=== PATIENT | female | born 1950 | race Caucasian/White ===

== ENCOUNTER 2017-09-04 22:28 | Observation (INO) ==
[2017-09-04] MEDS ORDERED: Nitroglycerin 0.4 MG TAB.SUBL SL PRN (23:03)
[2017-09-04] MEDS ORDERED: Aspirin 81 MG TAB.CHEW PO STA (23:03)
--- NOTE | 2017-09-04 23:06 | Emergency Department Note ---
Disposition Clinical Impression: Atypical chest pain Disposition: Admitted As Inpatient Condition: Good Referrals: Tarik Daily MD [Primary Care Provider] - Forms: ED Satisfaction Letter Time of Disposition: 01:40 Chest Pain HPI - General Chief Complaint: ED Chest Pain Stated Complaint: cp Time Seen by Provider: 09/04/17 22:46 Source: patient, family Mode of arrival: ambulatory Limitations: no limitations Vital Signs Reviewed: Yes Nursing Notes Reviewed: Yes - History of Present Illness HPI Narrative: 67-year-old female history of CAD x1 stent and current smoker presents with chest pain. States around 2029 she began experiencing left shoulder pain that radiated to the chest. She describes as a pressure over the chest with associated shortness of breath. No radiation to the back or to the jaw. Reportedly the pain is 10 out of 10 and currently 8 of 10. She did take 2 nitro prior to arrival. She did not taken aspirin today. She is on medications for high blood pressure as well as a Meera given her history of CAD. Reports some nausea no vomiting. Denies any diaphoresis. No recent illness fever or cough. Of note patient is on Eliquis for atrial fibrillation. She is post again ablation however she has complications and reportedly had a perforation to her heart. She reports that echocardiogram was performed and did not show fluid around the sack. This was back in August 09. Patient denies history of blood clots, long distance travel.. Pt complaint: chest pain Severity scale (1-10): 10 - Related Data Home Medications Medication Instructions Recorded Confirmed Simvastatin [Zocor] 40 mg PO QPM 03/22/16 04/26/16 Metoprolol XL (24 HR) Succ [Toprol 50 mg PO DAILY 04/12/16 04/26/16 Xl] Previous Rx's Medication Instructions Recorded Aspirin 81 mg PO DAILY #30 tab.chew 03/28/16 Sotalol [Betapace] 120 mg PO Q12H #20 tablet 04/28/16 Warfarin [Coumadin] 5 mg PO Q48H #4 tablet 04/28/16 Warfarin [Coumadin] 6 mg PO Q48H #4 tablet 04/28/16 Allergies Allergy/AdvReac Type Severity Reaction Status Date / Time Penicillins Allergy Swelling Verified 04/26/16 17:46 of Lip/Tongue/Throat All systems ED: reviewed and negative except as stated. Review of Systems: As Per HPI Constitutional: Denies: fever, chills, weakness ENT ED: Denies: congestion Cardiovascular: Reports: chest pain Respiratory: Reports: dyspnea. Denies: cough Gastrointestinal: Denies: abdominal pain, nausea, vomiting Genitourinary: Denies: urgency, dysuria Musculoskeletal: Denies: back pain, neck pain Integumentary: Denies: rash, abrasion Neurological: Denies: headache Psychiatric: Reports: anxiety Endocrine: Denies: fatigue Chest Pain PMH - Past Medical History Medical history: Reports: atrial fibrillation, coronary artery disease, myocardial infarction, other Surgical history: Reports: appendectomy, breast surgery, cholecystectomy, pacemaker/AICD, other Psychiatric history: Reports: no psych history CLAIMS MANAGER history: Reports: no CLAIMS MANAGER history - Social History Smoking Status: Current every day smoker Alcohol use: Reports: none Drug use: Reports: none Physical Exam - General Limitations: no limitations General appearance: alert, in no apparent distress - Head Head exam: atraumatic, normocephalic, normal inspection - Eye Eye exam: Present: normal appearance, PERRL, EOMI - ENT ENT exam: normal exam, normal oropharynx, mucous membranes moist - Neck Neck exam: Present: normal inspection, full ROM, trachea midline - Chest Chest inspection: Present: normal inspection, symmetric chest wall rise, other ( pacemaker left chest wall) - Respiratory Respiratory exam: Present: normal lung sounds bilaterally. Absent: respiratory distress, wheezes - Cardiovascular Cardiovascular exam: Present: regular rate, normal rhythm, normal heart sounds - Abdominal Exam Abdominal exam: Present: soft, Non-Tender, normal bowel sounds. Absent: tenderness, distention, guarding, rebound, rigidity - Extremities Exam Extremities exam: Present: normal inspection, full ROM, normal capillary refill. Absent: tenderness, pedal edema, calf tenderness - Neurological Exam Neurological exam: Present: alert, oriented X3 - Psychiatric Psychiatric exam: Present: normal affect, normal mood - Skin Skin exam: Present: warm, dry, intact, normal color. Absent: rash, cyanosis, diaphoresis Course Course Narrative: Patient presents with left arm pain radiating to the chest. States this is similar presentation to her prior myocardial infarction requiring one stent. She took 2 nitro prior to arrival with minimal relief. She denies any recent trauma. Of note she had a perforation during the ablation procedure for her atrial fibrillation. She had echocardiogram that did not show pericardial effusion. On exam she does not have any JVD. Heart sounds regular rate and rhythm. Lungs are clear auscultation bilaterally. Bedside ultrasound performed that showed trace pericardial effusion. No evidence of chamber collapse consistent with tamponade. Images and clips saved but unable to transfer to PACS at this time. Chest pain workup initiated. Patient did not take aspirin today will administer. Patient currently takes Eliquis for Afib. - Reevaluation(s) Reevaluation #1: Patient reports additional nitro may pain worse. Attempted G.I. cocktail also made it worse. Patient was given fentanyl which has substantially decrease her discomfort. EKG did not show any acute ischemic changes. Troponin < 0.03. Labs are otherwise unremarkable. CXR did not show pulmonary process or enlarged heart or outline around heart silhouette to suggest large pericardial effusion. Patient remains hemodynamically stable. Due to the patient's atypical presentation will admit for chest pain to rule out acute coronary syndrome. Her heart score is 5. Patients in agreement with this plan. Time: 02:15 - Consultations Consultation #1: Spoke with on-call hospitalist compa Murillo to admit for chest pain R/O ACS. No further orders at this time Time: 02:40 Vital Signs Temperature 98.2 F 09/04/17 22:31 Pulse Rate 69 09/04/17 22:31 Respiratory Rate 22 09/04/17 22:31 Blood Pressure 193/101 09/04/17 22:31 O2 Sat by Pulse Oximetry 94 09/04/17 22:31 Temperature 98.2 F 09/04/17 22:31 Pulse Rate 69 09/05/17 02:34 Respiratory Rate 17 09/05/17 02:34 Blood Pressure 119/79 09/05/17 02:34 O2 Sat by Pulse Oximetry 95 09/05/17 02:34 Oxygen Delivery Oxygen Delivery Room Air Procedures - Ultrasound-Other Narrative: Bedside ultrasound echocardiogram for chest pain and history of pericardial effusion. Patient was laid supine with the subxiphoid position there was a trace amount of pericardial effusion with good contractility. 8 parasternal long axis performed unable to visualize any pericardial effusion. There is good contractility no collapse of the ventricle. Images obtained by myself and interpreted by myself. Impression is questionable trace pericardial effusion without evidence of tamponade. Chest Pain - MDM Narrative Medical decision making narrative: Patient was discussed with my attending physician who agrees with ED management and final disposition. They independently evaluated the patient. Please refer to their attestation to this encounter for additional information. This note was generated by [employer] voice recognition software and as a result grammatical or spelling errors may occur using this program. - Medical Records Medical records reviewed: Yes I reviewed the patient's medical records. - Lab Data Lab results reviewed: Yes I reviewed the patient's lab results. Result diagrams: 09/04/17 22:57 09/04/17 22:57 Lab Results 09/04/17 09/04/17 09/04/17 Range/Units 22:57 22:57 22:57 WBC 9.2 (4.3-11.1) K/mcL RBC 4.58 (3.82-4.97) M/mcL Hgb 13.2 (11.5-15.4) g/dL Hct 41.7 (35.3-44.9) % MCV 91.0 (83.0-100.0) fL MCH 28.8 (28.0-33.3) pg MCHC 31.7 (31.6-35.5) g/dL RDW 12.8 (11.5-14.5) % Plt Count 210 (140-400) K/mcL MPV 11.3 (9.4-12.4) fL Immature Gran % 0.3 (0-4) % Seg Neutrophils % 70.7 % Lymphocytes % 17.1 % Monocytes % 7.7 % Eosinophils % 3.3 % Basophils % 0.9 % Neutrophils # 6.5 (1.6-8.9) K/mcL Lymphocytes # 1.6 (0.6-4.6) K/mcL Monocytes # 0.7 (0.0-1.3) K/mcL Eosinophils # 0.3 (0.0-0.6) K/mcL Basophils # 0.1 (0.0-0.2) K/mcL PT 12.6 H (9.4-12.1) Seconds INR 1.2 APTT 36.2 H (26.0-36.0) Seconds Sodium 139 (136-145) mEq/L Potassium 4.4 (3.5-5.1) mEq/L Chloride 106 (98-107) mEq/L Carbon Dioxide 28 (23-29) mEq/L BUN 14 (8-23) mg/dL Creatinine 0.80 (0.60-1.20) mg/dL Est GFR ( Amer) > 60 (> 60) Est GFR (Non-Af Amer) > 60 (> 60) BUN/Creatinine Ratio 18 (6-26) Glucose 122 H (70-105) mg/dL Calculated Osmolality 290 (280-300) Calcium 9.8 (8.6-10.3) mg/dL Troponin I < 0.03 (< 0.04) ng/mL - Radiology Data Radiology results reviewed: Yes I reviewed the patient's radiology results. Chest X-Ray 09/04/17 22:34 IMPRESSION: No acute cardiopulmonary abnormality. D/ / Silas Jolley / Silas Jolley Interpreting Provider: Silas Jolley - EKG Data EKG attestation: Yes I reviewed and interpreted this EKG. EKG results narrative: EKG performed 2236 electrical atrial paced rhythm 70 beats per minute, no ST elevation or depression, no T wave inversion, intervals within normal limits. Compared to prior EKG performed 04/28/2016 shows similar consistent findings of paced rhythm. Heart Score - Score History: Moderately Suspicious EKG: Non Specific repolarisation Disturbance Age: Greater than 65 Risk Factors: 1-2 risk factors Troponin: Less than normal limit HEART Score Total: 5
[2017-09-04 23:15] LABS: Basophils # 0.1 K/mcL (0.0-0.2); Basophils % 0.9 %; Eosinophils # 0.3 K/mcL (0.0-0.6); Eosinophils % 3.3 %; Hematocrit 41.7 % (35.3-44.9); Hemoglobin 13.2 g/dL (11.5-15.4); Immature Granulocytes % 0.3 % (0-4); Lymphocytes # 1.6 K/mcL (0.6-4.6); Lymphocytes % 17.1 %; Mean Corpuscular HGB Conc 31.7 g/dL (31.6-35.5); Mean Corpuscular Hemoglobin 28.8 pg (28.0-33.3); Mean Platelet Volume 11.3 fL (9.4-12.4); Monocytes # 0.7 K/mcL (0.0-1.3); Monocytes % 7.7 %; Neutrophils # 6.5 K/mcL (1.6-8.9); Platelet Count 210 K/mcL (140-400); Red Blood Count 4.58 M/mcL (3.82-4.97); Red Cell Distribution Width 12.8 % (11.5-14.5); Segmented Neutrophils % 70.7 %
[2017-09-04 23:21] LABS: INR 1.2; Prothrombin Time 12.6 Seconds (9.4-12.1)
[2017-09-04 23:23] LABS: Activated Partial Thrombo Time 36.2 Seconds (26.0-36.0)
[2017-09-04 23:37] LABS: BUN/Creatinine Ratio 18 (6-26); Blood Urea Nitrogen 14 mg/dL (8-23); Calcium 9.8 mg/dL (8.6-10.3); Carbon Dioxide 28 mEq/L (23-29); Chloride 106 mEq/L (98-107); Glucose 122 mg/dL (70-105); Osmolality,Calculated 290 (280-300); Potassium 4.4 mEq/L (3.5-5.1); Sodium 139 mEq/L (136-145); Troponin I < 0.03 ng/mL (< 0.04); eGFR For African Americans > 60 (> 60); eGFR For Non-African Americans > 60 (> 60)
[2017-09-05] MEDS ORDERED: GI Cocktail 40 ML EACH PO ONE (01:03)
[2017-09-05] MEDS ORDERED: *HR* FentaNYL (PF) 100 MCG/2 ML VIAL IVP ONE (01:41)
--- NOTE | 2017-09-05 03:03 | Emergency Department Note ---
Disposition Clinical Impression: Atypical chest pain Disposition: Admitted As Inpatient Condition: Good General Adult HPI - General Chief complaint: ED Chest Pain Stated complaint: cp Time Seen by Provider: 09/04/17 22:46 Source: patient, family Mode of arrival: ambulatory Limitations: no limitations Nursing Notes Reviewed: Yes Vital Signs Reviewed: Yes - History of Present Illness Pain Scale: 10 - Related Data Home Medications Medication Instructions Recorded Confirmed Metoprolol XL (24 HR) Succ [Toprol 50 mg PO DAILY 04/12/16 04/26/16 Xl] Previous Rx's Medication Instructions Recorded Aspirin 81 mg PO DAILY #30 tab.chew 03/28/16 Sotalol [Betapace] 120 mg PO Q12H #20 tablet 04/28/16 Allergies Allergy/AdvReac Type Severity Reaction Status Date / Time Penicillins Allergy Swelling Verified 04/26/16 17:46 of Lip/Tongue/Throat Constitutional: Denies: fever, chills, weakness ENT ED: Denies: congestion Cardiovascular: Reports: chest pain Respiratory: Reports: dyspnea. Denies: cough Gastrointestinal: Denies: abdominal pain, nausea, vomiting Genitourinary: Denies: urgency, dysuria Musculoskeletal: Denies: back pain, neck pain Integumentary: Denies: rash, abrasion Neurological: Denies: headache Psychiatric: Reports: anxiety Endocrine: Denies: fatigue Past Medical History - Past Medical History Medical history: Reports: atrial fibrillation, coronary artery disease, myocardial infarction, other Surgical history: Reports: appendectomy, breast surgery, cholecystectomy, pacemaker/AICD, other Psychiatric history: Reports: no psych history CHEMISTRY TECHNOLOGIST history: Reports: no CHEMISTRY TECHNOLOGIST history - Social History Smoking Status: Current every day smoker Smokeless Tobacco Status: No Alcohol use: Reports: none Drug use: Reports: none Physical Exam - General Limitations: no limitations General appearance: alert, in no apparent distress Course Vital Signs Temperature 98.2 F 09/04/17 22:31 Pulse Rate 69 09/04/17 22:31 Respiratory Rate 22 09/04/17 22:31 Blood Pressure 193/101 09/04/17 22:31 O2 Sat by Pulse Oximetry 94 09/04/17 22:31 Temperature 98.2 F 09/04/17 22:31 Pulse Rate 69 09/05/17 02:34 Respiratory Rate 17 09/05/17 02:34 Blood Pressure 119/79 09/05/17 02:34 O2 Sat by Pulse Oximetry 95 09/05/17 02:34 Oxygen Delivery Oxygen Delivery Room Air Medical Decision Making - Lab Data Result diagrams: 09/04/17 22:57 09/04/17 22:57 Lab Results 09/04/17 09/04/17 09/04/17 Range/Units 22:57 22:57 22:57 WBC 9.2 (4.3-11.1) K/mcL RBC 4.58 (3.82-4.97) M/mcL Hgb 13.2 (11.5-15.4) g/dL Hct 41.7 (35.3-44.9) % MCV 91.0 (83.0-100.0) fL MCH 28.8 (28.0-33.3) pg MCHC 31.7 (31.6-35.5) g/dL RDW 12.8 (11.5-14.5) % Plt Count 210 (140-400) K/mcL MPV 11.3 (9.4-12.4) fL Immature Gran % 0.3 (0-4) % Seg Neutrophils % 70.7 % Lymphocytes % 17.1 % Monocytes % 7.7 % Eosinophils % 3.3 % Basophils % 0.9 % Neutrophils # 6.5 (1.6-8.9) K/mcL Lymphocytes # 1.6 (0.6-4.6) K/mcL Monocytes # 0.7 (0.0-1.3) K/mcL Eosinophils # 0.3 (0.0-0.6) K/mcL Basophils # 0.1 (0.0-0.2) K/mcL PT 12.6 H (9.4-12.1) Seconds INR 1.2 APTT 36.2 H (26.0-36.0) Seconds Sodium 139 (136-145) mEq/L Potassium 4.4 (3.5-5.1) mEq/L Chloride 106 (98-107) mEq/L Carbon Dioxide 28 (23-29) mEq/L BUN 14 (8-23) mg/dL Creatinine 0.80 (0.60-1.20) mg/dL Est GFR ( Amer) > 60 (> 60) Est GFR (Non-Af Amer) > 60 (> 60) BUN/Creatinine Ratio 18 (6-26) Glucose 122 H (70-105) mg/dL Calculated Osmolality 290 (280-300) Calcium 9.8 (8.6-10.3) mg/dL Troponin I < 0.03 (< 0.04) ng/mL Attestation Statement - Attestation Attestation: I, Hemal Nguyen MD, personally evaluated this patient and discussed their management with the resident physician. I reviewed the resident's note and agree with the documented findings, medical decision making, and plan of care. 67-year-old female with history of coronary artery disease and coronary artery stents presents to the emergency department with a complaint of chest pain which started about 8:30 PM this evening. The pain started in the left shoulder and then radiated down to the mid lower substernal region. Pain is been constant since onset. Patient rated the pain a 15 out of 10 at the worst. She took 2 nitroglycerin at home which she states helped very little however when she got here she stated the pain was about an 8 out of 10. She received an additional nitroglycerin here and states it made the pain worse back up to a 10 out of 10. Other than starting in the shoulder and then radiating down to the chest there was no other radiation of the pain. Some shortness of breath and mild diaphoresis. Some mild nausea. Patient has a history of atrial fibrillation and has a pacemaker. She takes Eliquis. The chest pain is worse with sitting straight up or with lying down and improved with lying at about a 45 degree angle on the stretcher. On examination patient is a well-developed well-nourished well-appearing elderly female in no acute distress. She is alert and oriented 3. There is no cyanosis or diaphoresis. Chest is nontender to palpation. Breath sounds are equal bilaterally. No rales or wheezes noted. Heart regular rate and rhythm. Abdomen soft and nontender with normal bowel sounds. Labs reviewed. Troponin normal. EKG shows an electronic atrial pacemaker with a ventricular rate is 70 beats per minute. Minimal ST depression in V3 and V4. No ST elevations. No T-wave changes. Chest x-ray negative. Patient received a GI cocktail here with no improvement and stated it seemed to make the pain worse. She then received fentanyl with marked improvement in her pain. The hospitalist, Dr. Tamayo, was consulted and accepted admission of the patient.
[2017-09-05] MEDS ORDERED: Naloxone 0.4 MG/ML INJ IVP PRN (04:44)
[2017-09-05] MEDS ORDERED: *HR* HYDROcodone/Acet 5/325 mg TABLET PO PRN (04:44)
[2017-09-05] MEDS ORDERED: Acetaminophen 325 MG TABLET PO PRN (04:44)
[2017-09-05] MEDS ORDERED: Ipratropium/Albuterol Neb 3 ML IH PRN (04:54)
--- NOTE | 2017-09-05 05:19 | Internal Med History&Physical ---
Date of Encounter: 09/05/17 Time of Encounter: 04:20 Internal Medicine - H&P: HPI Chief complaint: chest pain, cough, SOB Admitted From: Emergency Dept Plans for Post Hospital Care: Home History of present illness: Ms. Mueller is a 67 year old female who presents with complaints of chest pain, cough, and shortness of breath, all of which started the last 24-48 hours. She came to ER for evaluation and had negative workup including EKG and troponins. Nonetheless, given her coronary artery disease history and recent EPS study, she was admitted to the hospitalist service. Patient had an EP study at [facility] last month and she suffered a perforation of her myocardium with a small pericardial effusion per verbal report from patient. She has had no untoward effects from that procedure thus far, but given her chronic anticoagulation and new presentation of chest pain and shortness of breath, I worry about pericardial effusion. I reviewed her x-ray and did not appreciate any enlargement of the cardiac silhouette. Nonetheless, I am ordering a STAT echocardiogram. Regarding her cough and shortness of breath, symptoms are all new and started within the last 2 days. She has had no fevers, chills, or night sweats. She denies any headaches, myalgias, vomiting, or diarrhea. She denies any FLU exposure. She is a nonsmoker and never has been. She has never had a PE. She is on Eliquis for her atrial fibrillation. She has not missed any doses of her anticoagulation. Past Med Surg Social Fam HX - Past Medical History Attestation: Yes The following information was validated with the patient. Source: patient, old records reviewed Medical history: atrial fibrillation, coronary artery disease, myocardial infarction Psychiatric history: no psych history - Past Surgical History Surgical History: appendectomy, breast surgery, cholecystectomy, pacemaker/AICD - Social History Smoking Status: Never smoker Smokeless Tobacco Status: No Alcohol use: none Drug use: none Current living situation: Home - Independent Activity Level: Independent ambulation Recent Out of Country Travel Within the Last 8 Weeks: No Exposure or Possible Exposure to Illness During Travel: No - Family History Mother Living Status: Hx Family Cardiac Disorders: Yes (unknown) Hx Family Respiratory Disorders: No Hx Family Cancer: No Hx Family GI Disorders: No Hx Family Genitourinary Disorders: No Hx Family Endocrine Disorder: Yes (diabetes) Hx Family Musculoskeletal Disorders: No Hx Family Neuromuscular Disorders: No Hx Family Neurologic Disorders: No Hx Family HEENT Disorders: No Hx Family Autoimmune Disorders: No Hx Family Reproductive Disorders: No Hx Family Psychosocial Disorders: No Hx Family Medical Disorders: No Brother Hx Family Cardiac Disorders: Yes (stents, [place]) Internal Medicine - H&P: Meds Aspirin 81 mg PO DAILY #30 tab.chew 03/28/16 [Rx] Metoprolol XL (24 HR) Succ [Toprol Xl] 50 mg PO DAILY 04/12/16 [History] Apixaban [Eliquis] 5 mg PO BID 09/05/17 [History] Atorvastatin [Lipitor] 40 mg PO HS 09/05/17 [History] Sotalol [Betapace] 160 mg PO Q12H 09/05/17 [History] 3 Allergy/AdvReac Type Severity Reaction Status Date / Time Penicillins Allergy Swelling Verified 04/26/16 17:46 of Lip/Tongue/Throat - Constitutional Constitutional: anorexia, malaise, no chills, no fever(s), no night sweats - EENT Eyes: no blurry vision, no change in vision Ears: no ear pain, no tinnitus Nose, mouth and throat: nasal congestion, sinus pressure, no nasal discharge, no post-nasal drip, no sinus pain, no sore throat - Cardiovascular Cardiovascular ROS IM: chest pain, dyspnea, dyspnea on exertion, no edema, no lightheadedness, no orthopnea, no palpitations, no paroxysmal nocturnal dyspnea , no syncope - Respiratory Respiratory: cough, dyspnea, dyspnea on exertion, pain on inspiration, chest congestion, change in phlegm color, pain with cough, no hemoptysis, no wheezing - Gastrointestinal Gastrointestinal: no abdominal pain, no diarrhea, no hematemesis, no hematochezia, no melena, no nausea, no vomiting - Genitourinary Genitourinary: no dysuria, no flank pain, no hematuria - Musculoskeletal Musculoskeletal ROS IM: no arthralgias, no back pain, no muscle cramps, no myalgias - Integumentary Integumentary IM: no rash, no jaundice - Neurological Neurological ROS: no dizziness, no focal weakness, no frequent falls, no headache(s) - Psychiatric Psychiatric: no anxiety, no depression - Endocrine Endocrine IM: no polydipsia, no polyuria - Hematologic/Lymphatic Hematologic/Lymphatic: easy bruising, no lymphadenopathy - Allergic/Immunologic Allergic/Immunologic: no wheezing, no GI upset with certain foods - Constitutional Vitals: Temp Pulse Resp BP Pulse Ox 97.8 F 68 16 125/77 96 09/05/17 03:37 09/05/17 03:37 09/05/17 03:37 09/05/17 03:37 09/05/17 03:37 General appearance: Present: cooperative, mild distress, A&O X 3, pleasant, answers questions appropriately - Head Head exam: Present: atraumatic, normal inspection - Eye Eye exam: Present: EOMI, normal appearance, PERRL. Absent: scleral icterus Pupils: Present: normal accommodation - ENT ENT exam: Present: mucous membranes dry, normal exam, normal oropharynx - Neck Neck exam general surgery: Present: full ROM, supple. Absent: tenderness, nuchal rigidity, thyromegaly - Respiratory Respiratory exam: Present: rales (left base with + splinting), rhonchi. Absent : accessory muscle use, chest wall tenderness, wheezes, tachypnea - Cardiovascular Cardiovascular exam: Present: RRR, +S1, +S2. Absent: diastolic murmur, JVD, systolic murmur - GI/Abdominal GI/Abdominal exam: Present: normal bowel sounds, soft, no peritoneal signs. Absent: guarding, hepatomegaly, mass, rebound, splenomegaly, tenderness - Extremities Exam Extremities exam: Present: full ROM, normal capillary refill, warm, radial pulses palpable and symmetrical. Absent: calf tenderness, joint swelling, pedal edema - Back Exam Back exam: Present: normal inspection. Absent: CVA tenderness (L), CVA tenderness (R) - Neurological Exam Neurological exam: Present: alert, oriented X3, no focal deficits - Psychiatric Psychiatric exam: Present: normal affect, normal mood - Skin Skin exam: Present: dry, warm. Absent: rash Internal Med - H&P Results - Labs CBC & Chem 7: 09/04/17 22:57 09/04/17 22:57 - EKG Data -: EKG Interpreted by Myself - EKG Data Prior EKG available for review: no EKG comments: 09/05/17 05:26 atrial paced rhythm; no appreciable ST-T changes - Diagnostic Studies Chest x-ray Status: image reviewed by me (lungs clear; cardiac shadow appears normal) - VTE Reasons for not Prescribing Prophylaxis: Not indicated-Anticoagulated or INR therapeutic - Assessment and plan (1) Chest pain Current Visit: No Status: Acute Assessment and plan: 1. Will trend troponins and EKG's. 2. I ordered STAT ECHO to rule out pericardial effusion given recent EPS with myocardial perforation and chronic anti-coagulation. 3. Consult cardiology if necessary; however, if she needs intervention, patient prefers to be transferred to [facility]. Qualifiers: Chest pain type: chest pain on breathing Qualified Code(s): R07.1 - Chest pain on breathing; R07.81 - Pleurodynia (2) Pneumonia Current Visit: Yes Status: Suspected Assessment and plan: 1. CXR negative, but on exam and history I suspect pneumonia. 2. I ordered blood cultures. 3. Patient has anaphylactic reaction to penicillins and, thus, she is not a candidate for cephalosporins. 4. Levaquin contraindicated due to QTc prolongation risk with Sotalol. 5. I discussed treatment options with pharmacy and opted to try monotherapy with Doxycycline for now. 6. Duonebs PRN. 7. Will order FLU test. Qualifiers: Pneumonia type: due to unspecified organism Laterality: left Lung location: lower lobe of lung Qualified Code(s): J18.1 - Lobar pneumonia, unspecified organism (3) Atrial fibrillation Current Visit: No Status: Chronic Assessment and plan: 1. Continue Sotalol and Eliquis. 2. Monitor clinically and on telemetry. 3. Consult cardiology if necessary. Qualifiers: Atrial fibrillation type: paroxysmal Qualified Code(s): I48.0 - Paroxysmal atrial fibrillation (4) DVT prophylaxis Current Visit: No Status: Chronic Assessment and plan: 1. On Eliquis.
[2017-09-05] MEDS: Doxycycline 100 MG in 0.9 % Sodium Chloride Mini Bag 100 ML IVPB SCH ×2 (05:58→17:32)
[2017-09-05] MEDS: 0.9 % Sodium Chloride 1,000 ML IVC SCH ×2 (05:58→15:59)
[2017-09-05 06:12] LABS: Basophils # 0.1 K/mcL (0.0-0.2); Basophils % 0.5 %; Eosinophils # 0.2 K/mcL (0.0-0.6); Eosinophils % 2.1 %; Hematocrit 39.2 % (35.3-44.9); Hemoglobin 12.3 g/dL (11.5-15.4); Immature Granulocytes % 0.3 % (0-4); Lymphocytes # 1.2 K/mcL (0.6-4.6); Lymphocytes % 13.2 %; Mean Corpuscular HGB Conc 31.4 g/dL (31.6-35.5); Mean Corpuscular Hemoglobin 28.3 pg (28.0-33.3); Mean Corpuscular Volume 90.3 fL (83.0-100.0); Mean Platelet Volume 11.1 fL (9.4-12.4); Monocytes # 0.9 K/mcL (0.0-1.3); Monocytes % 9.1 %; Platelet Count 174 K/mcL (140-400); Red Blood Count 4.34 M/mcL (3.82-4.97); Red Cell Distribution Width 12.8 % (11.5-14.5); Segmented Neutrophils % 74.8 %
[2017-09-05 07:03] LABS: Influenza A PCR Negative (Negative); Influenza B PCR Negative (Negative)
[2017-09-05 07:24] LABS: Alanine Aminotransferase 35 Units/L (7-52); Albumin 3.9 g/dL (3.5-5.7); Albumin/Globulin Ratio 1.6 (1.1-2.2); Alkaline Phosphatase 77 Units/L (34-104); Aspartate Amino Transferase 29 Units/L (13-39); BUN/Creatinine Ratio 19 (6-26); Bilirubin,Total 0.5 mg/dL (0.3-1.0); Blood Urea Nitrogen 10 mg/dL (8-23); Carbon Dioxide 28 mEq/L (23-29); Chloride 106 mEq/L (98-107); Chol/HDL Ratio 3.2 (0-4.9); Cholesterol 134 mg/dL (< 200); Globulin 2.4 g/dL (2.4-3.5); Glucose 112 mg/dL (70-105); HDL Cholesterol 42 mg/dL (40-59); LDL Cholesterol,Calculated 75 mg/dL (0-99); Magnesium 2.1 mg/dL (1.6-2.6); Osmolality,Calculated 288 (280-300); Potassium 3.9 mEq/L (3.5-5.1); Sodium 139 mEq/L (136-145); Total Protein 6.3 g/dL (6.4-8.9); Triglycerides 83 mg/dL (< 150); eGFR For African Americans > 60 (> 60); eGFR For Non-African Americans > 60 (> 60)
[2017-09-05] MEDS: Apixaban 5 MG TABLET PO SCH ×2 (08:18→21:47)
[2017-09-05] MEDS: Aspirin 81 MG TAB.CHEW PO SCH (08:18)
[2017-09-05] MEDS ORDERED: Ibuprofen 400 MG TABLET PO PRN (13:42)
[2017-09-05] MEDS ORDERED: 0.9 % Sodium Chloride 500 ML IVC ONE ×2 (16:41→16:55)
--- NOTE | 2017-09-05 18:06 | Internal Med Progress Note ---
Date of Encounter: 09/07/17 Time of Encounter: 16:00 - Assessment and plan (1) Atrial fibrillation Status: Chronic Assessment and plan: Patient has history of atrial fibrillation sotalol increased 260 mg twice a day approximately one month ago continue with Eliquis area patient had episode of coughing and a low-grade temperature she went into A. fib RVR initiated on Cardizem gtt at 5 mg hour. We will treat underlying trigger most likely pneumonia-we will obtain CT chest Continues chronic monitoring Consult cardiology Qualifiers: Atrial fibrillation type: paroxysmal Qualified Code(s): I48.0 - Paroxysmal atrial fibrillation (2) Chest pain Status: Acute Assessment and plan: 1. Presently chest pain-free troponins are negative EKG with no ST-T wave abnormalities Echo was obtained which did show EF of 55-60% Moderate concentric left ventricular hypertrophy. Indeterminate diastolic function. Normal right ventricular structure and function. Mild mitral regurgitation. Mild-moderate tricuspid regurgitation. Mild pulmonic regurgitation. Mild-moderate pulmonary hypertension. The IVC is dilated. Consult cardiology as needed however the patient prefers to be transferred to [facility] if any interventions are required Qualifiers: Chest pain type: chest pain on breathing Qualified Code(s): R07.1 - Chest pain on breathing; R07.81 - Pleurodynia (3) Pneumonia Status: Suspected Assessment and plan: Chest x-ray is negative however by exam and patient previous history suspicious for pneumonia. We will obtain a CT of chest once patient's heart rate is controlled Blood cultures have been ordered Patient does have a history of anaphylaxis reaction to penicillin-not a candidate for cephalosporins Levaquin contraindicated due to to see prolongation risk with sotalol Previous hospitalist reviewed the options with pharmacy-recommending doxycycline for now Duo nebs We will obtain respiratory panel Qualifiers: Pneumonia type: due to unspecified organism Laterality: left Lung location: lower lobe of lung Qualified Code(s): J18.1 - Lobar pneumonia, unspecified organism (4) DVT prophylaxis Status: Chronic Assessment and plan: 1. On Eliquis. - Time Spent With Patient Total time spent is greater than 50% in coordination of care (as documented) at patient's floor/unit and/or counseling patient: - Subjective Interval history: This patient is new to me I did review medical records. I did examine the patient at bedside earlier today. Patient was also seen by hospitalist earlier in the morning during admission. She was originally admitted with complaints of chest pain cough and shortness of breath which all started within the past 24 -48 hours. Cardiac workup has been negative thus far. However she does have a history of atrial fibrillation and recently underwent a cardiac ablation at [facility] in suffered a perforation of her myocardium with a small pericardial effusion this was per Asians verbal report. She also is followed by cardiology at [facility]. Master Printer had recently increased her sotalol to a 160 mg. This change occurred on August 10. She has been experiencing some episodes of atrial fibrillation most recently she experienced an episode of A. fib on Sunday which lasted approximately 24 hours as well as an episode on Sunday which lasted approximately an hour and resolved. She is on Eliquis for anticoagulation she states she has not missed any doses of her sotalol or Eliquis Over the past 2 days she has been experiencing increased shortness of breath as well as a cough and a left-sided shoulder pain which started last night. Echocardiogram was ordered and it did reveal EF of 55-60% moderate concentric left ventricular hypertrophy indeterminant diastolic function normal right ventricular structure and function mild mitral regurgitation and [id number] tricuspid regurgitation mild pulmonic regurgitation mild to moderate pulmonary hypertension the IVC is dilated. I did ask patient if she would like to be transfered to her own customer development representative, she said no however did request if any intervention needed to occur she would like to be transfered to [facility]. Patient is a current smoker however she states she has not been able to smoke the past 3 days chest x-ray with no acute process. Today she is been doing well until later this afternoon when she began to experience increased coughing and a low-grade fever of 100.2. She has been coughing up clear sputum During coughing spell patient did go into A. fib RVR. With heart rates in the 150s to 170s blood pressure 90 systolic sats are stable she denies any chest pain. Patient was given small IV bolus 0.9 to I did review this case with Dr. BRUNSON, patient transferred to [facility]. initiated on Cardizem drip at 5 mg per hour. I did speak with Dr Adrian customer development representative and updated on case. She agreed with cardizem and requested that pt be NPO after midnight for possible cardioversion in AM. I spoke to patient concerning plan, asked if she wanted to go to [facility], she said she would stay and think about doing the cardioversion We will attempt to obtain a chest CT heart rate is controlled . - Constitutional Vitals: Temp Pulse Resp BP Pulse Ox 98.1 F 128 17 121/76 95 09/05/17 16:07 09/05/17 17:54 09/05/17 17:54 09/05/17 17:54 09/05/17 17:54 General appearance: Present: cooperative, mild distress, A&O X 3, pleasant, answers questions appropriately - Head Head exam: Present: atraumatic, normocephalic - Eye Eye exam: Present: PERRL, conjuntiva pink, sclera anicteric Pupils: Present: PERRL - Neck Neck exam general surgery: Present: supple, trachea midline. Absent: lymphadenopathy - Respiratory Respiratory exam: Present: CTAB. Absent: accessory muscle use, rales, rhonchi, wheezes - Cardiovascular Cardiovascular exam: Present: irregular rhythm, +S1, +S2. Absent: diastolic murmur, gallop, rubs, systolic murmur - GI/Abdominal GI/Abdominal exam: Present: normal bowel sounds, soft, no peritoneal signs. Absent: distended, tenderness - Extremities Exam Extremities exam: Present: warm, radial pulses palpable and symmetrical. Absent : calf tenderness, cyanotic, pedal edema - Neurological Exam Neurological exam: Present: CN II-XII intact, oriented X3, no focal deficits. Absent: pronater drift, facial droop, speech deficit - Skin Skin exam: Present: dry, intact Internal Medicine: Result - Labs CBC & Chem 7: 09/06/17 06:51 09/06/17 06:51 Labs: Short CBC 09/05/17 Range/Units 05:55 WBC 9.4 (4.3-11.1) K/mcL Hgb 12.3 (11.5-15.4) g/dL Hct 39.2 (35.3-44.9) % Plt Count 174 (140-400) K/mcL Neutrophils # 7.0 (1.6-8.9) K/mcL BMP 09/05/17 05:55 Sodium 139 Potassium 3.9 Chloride 106 Carbon Dioxide 28 BUN 10 Creatinine 0.52 L Glucose 112 H Calcium 9.0 Cardiac Enzymes 09/05/17 09/05/17 Range/Units 05:55 11:46 Troponin I < 0.03 < 0.03 (< 0.04) ng/mL Liver Function 09/05/17 Range/Units 05:55 Total Bilirubin 0.5 (0.3-1.0) mg/dL AST 29 (13-39) Units/L ALT 35 (7-52) Units/L Alkaline Phosphatase 77 (34-104) Units/L Albumin 3.9 (3.5-5.7) g/dL - ABG Interpretation ABG results: PT/INR, D-dimer PT 12.6 Seconds (9.4-12.1) H 09/04/17 22:57 - Impressions Impressions Echocardiogram 09/05/17 04:54 Impressions: LVEF 55-60%. Moderate concentric left ventricular hypertrophy. Indeterminate diastolic function. Normal right ventricular structure and function. Mild mitral regurgitation. Mild-moderate tricuspid regurgitation. Mild pulmonic regurgitation. Mild-moderate pulmonary hypertension. The IVC is dilated. Left Ventricular Wall Motion: Rest Echo Findings All wall segments showed normal motion. Findings: Study Quality * Technically adequate exam. ECG Findings * Normal sinus rhythm. Left Ventricle * Moderate concentric left ventricular hypertrophy. * Normal LV chamber size. * LVEF 55-60%. * Indeterminate diastolic function. Right Ventricle * Normal right ventricular structure and function. Left Atrium * Moderately dilated left atrium. Right Atrium * Normal right atrial size. Mitral Valve * Normal mitral valve structure. * No mitral stenosis. * Mild mitral annular calcification * Mild mitral regurgitation. Aortic Valve * Trace aortic regurgitation. * Trileaflet aortic valve. * Mildly calcified and thickened aortic valve leaflets. * No aortic stenosis. Tricuspid Valve * Tricuspid valve not well visualized. * Mild-moderate tricuspid regurgitation. * Estimated RA pressure is 20 mmHg. * Estimated RVSP is 47 mmHg. * Mild-moderate pulmonary hypertension. Pulmonic Valve * Pulmonic valve is not well visualized. * No pulmonic stenosis. * Mild pulmonic regurgitation. Pulmonary Artery * Pulmonary artery not well visualized. Aorta * Normally sized aortic root. Pericardium * There is no pericardial effusion present. Interatrial Septum * No evidence of PFO by color Doppler. IVC * The IVC is dilated. * < 50% respiratory change. Device lead * A device lead was visualized in the right atrium and right ventricle. - VTE Reasons for not Prescribing Prophylaxis: Not indicated-Anticoagulated or INR therapeutic Consult Discharge Plan - Plan Referrals: Tarik Daily MD [Primary Care Provider] - Prescriptions: Diltiazem CD (24hr) [Cardizem CD] 120 mg PO DAILY #30 cap.er.24h Doxycycline 100 mg PO BID 5 Days #10 capsule
[2017-09-06] MEDS: Doxycycline 100 MG in 0.9 % Sodium Chloride Mini Bag 100 ML IVPB SCH (05:52)
[2017-09-06 07:11] LABS: Basophils # 0.1 K/mcL (0.0-0.2); Basophils % 0.8 %; Eosinophils # 0.2 K/mcL (0.0-0.6); Eosinophils % 2.4 %; Hematocrit 39.9 % (35.3-44.9); Hemoglobin 12.8 g/dL (11.5-15.4); Immature Granulocytes % 0.3 % (0-4); Lymphocytes # 1.2 K/mcL (0.6-4.6); Lymphocytes % 15.7 %; Mean Corpuscular HGB Conc 32.1 g/dL (31.6-35.5); Mean Corpuscular Volume 90.5 fL (83.0-100.0); Mean Platelet Volume 11.1 fL (9.4-12.4); Monocytes # 0.8 K/mcL (0.0-1.3); Monocytes % 10.1 %; Neutrophils # 5.4 K/mcL (1.6-8.9); Platelet Count 184 K/mcL (140-400); Red Blood Count 4.41 M/mcL (3.82-4.97); Red Cell Distribution Width 12.7 % (11.5-14.5); Segmented Neutrophils % 70.7 %
[2017-09-06 07:29] LABS: BUN/Creatinine Ratio 15 (6-26); Blood Urea Nitrogen 6 mg/dL (8-23); Calcium 8.8 mg/dL (8.6-10.3); Carbon Dioxide 24 mEq/L (23-29); Chloride 108 mEq/L (98-107); Glucose 113 mg/dL (70-105); Osmolality,Calculated 282 (280-300); Potassium 3.8 mEq/L (3.5-5.1); Sodium 137 mEq/L (136-145); eGFR For African Americans > 60 (> 60); eGFR For Non-African Americans > 60 (> 60)
[2017-09-06] MEDS: Aspirin 81 MG TAB.CHEW PO SCH (08:25)
[2017-09-06] MEDS: Apixaban 5 MG TABLET PO SCH (08:26)
--- NOTE | 2017-09-06 09:11 | Electrophysiology Consult Note ---
<Eren Hurtado - Last Filed: 09/06/17 10:13> Date of Encounter: 09/06/17 Time of Encounter: 09:10 Assessment and Plan (1) Atrial fibrillation with rapid ventricular response Status: Acute Per Cardiology: History of paroxysmal atrial fibrillation and currently on sotalol 160 mg by mouth every 12 hours-- reports recently increased. Also taking Toprol-XL 50 mg by mouth daily. Reports compliance of medication with no missed doses. Reports recent attempt at ablation, however aborted due to development of effusion with potential rescheduling in the next few weeks. Current echo shows no evidence of effusion. Currently A. fib with RVR in the 110s to 120s and on Cardizem drip 7.5 mg per hour. Patient fairly adamant she is going home today. Patient does not desire to discontinue sotalol. Reports follows with Dr. Lorenzo (EP). Will attempt to wean IV Cardizem drip to off, we will initiate Cardizem 30 mg by mouth every 6 hours. Magnesium stable. Will check TSH. If able to rate control off IV Cardizem, suspect would be ok to DC, otherwise high anticipation may leave AMA today. 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 H&H stable. Kidney function stable. (3) Coronary artery disease Status: Chronic Per Cardiology: History of CAD. Troponins negative 4. Echo showed preserved EF 55-60%, NSWMA. On aspirin, beta brandy, and statin. Will attempt to obtain medical records with recent catheterization about one year ago from [place]. Qualifiers: Coronary Disease-Associated Artery/Lesion type: morongo artery [place] vs. transplanted heart: morongo heart Associated angina: without angina Qualified Code(s): I25.10 - Atherosclerotic heart disease of morongo coronary artery without angina pectoris (4) Pacemaker Status: Chronic Per Cardiology: History of sick sinus syndrome with pacemaker. Where Was it Filmed, reports interrogated last month prior to ablation. Discussion w patient/family: The assessment and plan as outlined above was discussed with the patient and/or family members who expressed understanding and agreement. All questions were answered. Thank you for involving us in the care of your patient. Please call with any questions. History of Present Illness Consult date: 09/06/17 Requesting physician: Reece Tamayo Consult reason: Afib, On sotalol History of present illness: CARDIOLOGY CONSULT (not a EP consult) Ms. Mueller is a 67 year old female with a relevant past medical history of paroxysmal atrial fibrillation on sotalol, CAD, sick sinus syndrome with pacemaker, nicotine abuse. Last seen by cardiology during inpatient stay in 2016. No outpatient records noted. Cardiology consult for A. fib. Patient seen with family at bedside. Reports now follows with cardiology and electrophysiology in [place]. She reports recent ablation attempt about one month ago with attempt not completed due to development of small pericardial effusion. She reports recently sotalol has been increased 260 mg by mouth every 12 hours and has pending rescheduling of her ablation in the next few weeks. Patient reports she came to the ER due to onset of left-sided arm pain at rest while watching television. She reports symptoms similar to what she experienced with DE many years ago. She reports recent catheterization about one year ago with stenting at [place]. She reports compliance with medications. She denies any recent infectious process. Denies any active bleeding or blood loss. Past Med Surg Social Fam HX - Past Medical History Attestation: Yes The following information was validated with the patient. Source: patient, old records reviewed, obtained from family Medical history: atrial fibrillation, coronary artery disease, myocardial infarction Psychiatric history: no psych history - Past Surgical History Surgical History: appendectomy, breast surgery, cholecystectomy, pacemaker/AICD - Social History Smoking Status: Never smoker Packs per day: 1 pk Smokeless Tobacco Status: No Alcohol use: none Drug use: none - Family History Mother Living Status: Hx Family Cardiac Disorders: Yes (unknown) Hx Family Respiratory Disorders: No Hx Family Cancer: No Hx Family GI Disorders: No Hx Family Genitourinary Disorders: No Hx Family Endocrine Disorder: Yes (diabetes) Hx Family Musculoskeletal Disorders: No Hx Family Neuromuscular Disorders: No Hx Family Neurologic Disorders: No Hx Family HEENT Disorders: No Hx Family Autoimmune Disorders: No Hx Family Reproductive Disorders: No Hx Family Psychosocial Disorders: No Hx Family Medical Disorders: No Brother Hx Family Cardiac Disorders: Yes (stents, DE) Medications and Allergies Aspirin 81 mg PO DAILY #30 tab.chew 03/28/16 [Rx] Metoprolol XL (24 HR) Succ [Toprol Xl] 50 mg PO DAILY 04/12/16 [History] Apixaban [Eliquis] 5 mg PO BID 09/05/17 [History] Atorvastatin [Lipitor] 40 mg PO HS 09/05/17 [History] Loratadine [Allergy Relief] 10 mg PO DAILY 09/05/17 [History] Multivitamin [One Daily Multivitamin] 1 tab PO DAILY 09/05/17 [History] Sotalol [Betapace] 160 mg PO Q12H 09/05/17 [History] Diltiazem CD (24hr) [Cardizem CD] 120 mg PO DAILY #30 cap.er.24h 09/06/17 [Rx] Doxycycline 100 mg PO BID 5 Days #10 capsule 09/06/17 [Rx] 3 Allergy/AdvReac Type Severity Reaction Status Date / Time Penicillins Allergy Swelling Verified 09/05/17 09:13 of Lip/Tongue/Throat All Systems Review: The remainder of the systems were reviewed and are negative - Cardiovascular Cardiovascular: as per HPI, radiating jaw, neck or arm pain, rapid heart rate Physical Examination Vital Signs, Last 4 Hours Temp Pulse Resp BP Pulse Ox 09/06/17 08:20 92 09/06/17 06:34 98.4 F 98 16 118/78 92 General: Conversant, No Apparent Distress HEENT: Atraumatic, Normocephaly, Mucus Membranes Moist Neck: No JVD, Normal carotid pulses Cardiac: Normal S1 and S2, No Murmur, Other (Irregularly irregular) Lungs: Normal Breath Sounds, No Wheeze, Rales, Rhonchi Neuro: Alert and responsive, No focal deficits noted Abdomen: Soft, Non-Tender Skin: No rashes noted on visualized skin, Other (Right groin site trying intact , no hematoma, no bleeding, no erythema-- status post recent ablation attempt) Musculoskeletal: No Chest Wall Tenderness Extremities: No Clubbing, No Cyanosis, No Edema, Normal Pulses Results 09/06/17 06:51 09/06/17 06:51 Lab Results Laboratory Tests 09/04/17 09/04/17 09/05/17 22:57 22:57 05:55 INR 1.2 Creatinine Est GFR (Non-Af Amer) Magnesium 2.1 AST 29 ALT 35 Troponin I < 0.03 LDL Cholesterol, Calc 75 Influenza Type A (PCR) Influenza Type B (PCR) 09/05/17 09/05/17 09/05/17 05:55 06:20 11:46 INR Creatinine Est GFR (Non-Af Amer) Magnesium AST ALT Troponin I < 0.03 < 0.03 LDL Cholesterol, Calc Influenza Type A (PCR) Negative Influenza Type B (PCR) Negative 09/05/17 09/06/17 17:29 06:51 INR Creatinine 0.40 L Est GFR (Non-Af Amer) > 60 Magnesium AST ALT Troponin I < 0.03 LDL Cholesterol, Calc Influenza Type A (PCR) Influenza Type B (PCR) ITS Impressions Chest X-Ray 09/04/17 22:34 IMPRESSION: No acute cardiopulmonary abnormality. D/ / Silas Jolley / Silas Jolley Interpreting Provider: Silas Jolley Echocardiogram 09/05/17 04:54 Impressions: LVEF 55-60%. Moderate concentric left ventricular hypertrophy. Indeterminate diastolic function. Normal right ventricular structure and function. Mild mitral regurgitation. Mild-moderate tricuspid regurgitation. Mild pulmonic regurgitation. Mild-moderate pulmonary hypertension. The IVC is dilated. Left Ventricular Wall Motion: Rest Echo Findings All wall segments showed normal motion. Findings: Study Quality * Technically adequate exam. ECG Findings * Normal sinus rhythm. Left Ventricle * Moderate concentric left ventricular hypertrophy. * Normal LV chamber size. * LVEF 55-60%. * Indeterminate diastolic function. Right Ventricle * Normal right ventricular structure and function. Left Atrium * Moderately dilated left atrium. Right Atrium * Normal right atrial size. Mitral Valve * Normal mitral valve structure. * No mitral stenosis. * Mild mitral annular calcification * Mild mitral regurgitation. Aortic Valve * Trace aortic regurgitation. * Trileaflet aortic valve. * Mildly calcified and thickened aortic valve leaflets. * No aortic stenosis. Tricuspid Valve * Tricuspid valve not well visualized. * Mild-moderate tricuspid regurgitation. * Estimated RA pressure is 20 mmHg. * Estimated RVSP is 47 mmHg. * Mild-moderate pulmonary hypertension. Pulmonic Valve * Pulmonic valve is not well visualized. * No pulmonic stenosis. * Mild pulmonic regurgitation. Pulmonary Artery * Pulmonary artery not well visualized. Aorta * Normally sized aortic root. Pericardium * There is no pericardial effusion present. Interatrial Septum * No evidence of PFO by color Doppler. IVC * The IVC is dilated. * < 50% respiratory change. Device lead * A device lead was visualized in the right atrium and right ventricle. Chest CT 09/05/17 16:29 IMPRESSION: Dependent airspace disease on the right. This is nonspecific and may represent a small segment of pneumonia. Atelectasis from the effusion is possible. Similar findings, to a lesser degree, are noted on the left. D/ / Leobardo Guevara / Leobardo Guevaar Interpreting Provider: Leobardo Guevara Active Medications Acetaminophen (Tylenol) 650 mg PO Q6HR PRN PRN Reason: Mild Pain/Fever Stop: 03/07/18 04:45 Last Admin: 09/05/17 11:53 Dose: 650 mg Hydrocodone Bitart/Acetaminophen ([place] 5-325 Mg) 1 tab PO Q6HR PRN PRN Reason: Moderate Pain Stop: 03/07/18 04:45 Last Admin: 09/05/17 15:56 Dose: 1 tab Albuterol/Ipratropium (Duoneb) 3 ml IH [id number] PRN PRN Reason: Shortness Of Breath/Wheezing Stop: 03/07/18 04:55 Apixaban (Eliquis) 5 mg PO BID KARINA Stop: 03/07/18 09:01 Last Admin: 09/06/17 08:26 Dose: 5 mg Aspirin (Aspirin) 81 mg PO DAILY KARINA Stop: 03/07/18 09:01 Last Admin: 09/06/17 08:25 Dose: 81 mg Atorvastatin Calcium (Lipitor) 40 mg PO HS KARINA Stop: 03/07/18 21:01 Last Admin: 09/05/17 21:47 Dose: 40 mg Doxycycline Hyclate 100 mg/ (Sodium Chloride) 100 mls @ 100 mls/hr IVPB Q12HR KARINA Stop: 03/07/18 06:01 Last Admin: 09/06/17 05:52 Dose: 100 mls/hr Diltiazem HCl 125 mg/ Sodium (Chloride) 125 mls @ 5 mls/hr IVC .Q24H KARINA; 5 MG/ HR PRN Reason: Protocol Stop: 03/07/18 17:01 Last Admin: 09/06/17 02:54 Dose: Not Given Ibuprofen (Motrin) 400 mg PO Q6HR PRN PRN Reason: Mild Pain/Fever Stop: 03/07/18 13:43 Naloxone HCl (Narcan) 0.4 mg IVP Q2MIN PRN PRN Reason: SEE COMMENTS Stop: 03/07/18 04:45 Nitroglycerin (Nitroglycerin) 0.4 mg SL Q5MIN PRN PRN Reason: Chest Pain Stop: 03/06/18 23:04 Last Admin: 09/04/17 23:29 Dose: 0.4 mg Sotalol HCl (Betapace) 160 mg PO Q12H KARINA Stop: 03/07/18 09:01 Last Admin: 09/06/17 08:25 Dose: 160 mg - Imaging and Cardiology Echo: report reviewed - EKG Interpretation EKG results cardiology: personally reviewed (Initial ECG showed sinus rhythm, subsequent ECG showed A. fib with RVR in the 160s. QTC 419 ms.), other ( Telemetry reviewed with average heart rate past 12 hours 120, currently A. fib in the 110s to 120s) Consult Discharge Plan - Plan Referrals: Tarik Daily MD [Primary Care Provider] - Prescriptions: Diltiazem CD (24hr) [Cardizem CD] 120 mg PO DAILY #30 cap.er.24h Doxycycline 100 mg PO BID 5 Days #10 capsule <JaegerAshish Lucy - Last Filed: 09/10/17 01:13> Date of Encounter: 09/06/17 Time of Encounter: 17:00 - Attending Attestation I have personally performed a face to face evaluation on this patient. I have reviewed and agree with the care plan. History and Exam by me shows: CC: palpitations Pt refuses further evaluation, discussed options at length, offered to call Dr. Valdez, her attending cobbler sole, and arrange transfer, pt refuses, wants to sign out against medical advice, understands and accepts risks including arhythmia, syncope, heart failure and . Assessment and Plan Discussion w patient/family: The assessment and plan as outlined above was discussed with the patient and/or family members who expressed understanding and agreement. All questions were answered. Thank you for involving us in the care of your patient. Please call with any questions. History of Present Illness History of present illness: Ms. Mueller is a 67 year old female All Systems Review: The remainder of the systems were reviewed and are negative Results 09/06/17 06:51 09/06/17 06:51
[2017-09-06 10:55] VITALS: BP 102/63
--- NOTE | 2017-09-06 12:05 | Event Note ---
Date of Encounter: 09/06/17 Time of Encounter: 12:00 - Cardiology Event Note Patient seen with Dr. Jaeger. IV Cardizem drip off due to IV infiltration. Patient reports leaving AMA. Current heart rate A. fib in the 110s to 120s. Recommend DC home with Cardizem CD 120 mg by mouth daily and discontinue Toprol- XL 50 mg by mouth daily-- current systolic blood pressure 102. Patient desires to continue sotalol 160 mg by mouth every 12 hours; ideally would discontinue since failed therapy. Patient declined transfer to outside facility. Encouraged to follow-up with her primary debt counselor to evaluate A. fib ablation versus AV node ablation. All questions answered, cardiology signing off since patient leaving AMA. Reconsult if needed. Patient and daughter verbalized understanding and agreed with plan.
--- NOTE | 2017-09-06 17:08 | Electrocardiograph Report ---
[address] [address] Test Date: 2017-09-05 Pat Name: Bibi Mueller Department: 113 Room: 3B13 Gender: Operations Business Partner: : [id number] Requested By: Reece Tamayo Order Number: [id number] Reading MD: Marli Leyva Measurements Intervals [place] Rate: 160 P: [place]: 0 QRS: 39 QRSD: 88 T: -30 QT: 282 QTc: 371 Interpretive Statements ATRIAL FIBRILLATION WITH RAPID VENTRICULAR RESPONSE NONSPECIFIC ST & T-WAVE ABNORMALITY Electronically Signed On 09-06-2017 17:07:10 EDT by Marli Leyva
--- NOTE | 2017-09-06 17:08 | Electrocardiograph Report ---
[address] [address] Test Date: 2017-09-04 Pat Name: Bibi Mueller Department: 104 Room: 3B13 Gender: F Pipe Connector: DAX : 1950 Requested By: Hemal Nguyen Order Number: [id number] Reading MD: Cristino Leyva Measurements Intervals [place] Rate: 70 P: 42 [place]: 163 QRS: 53 QRSD: 89 T: 46 QT: 399 QTc: 419 Interpretive Statements ELECTRONIC ATRIAL PACEMAKER MINIMAL ST DEPRESSION ABNORMAL RHYTHM ECG Electronically Signed On 09-06-2017 17:06:31 EDT by Cristino Leyva
--- NOTE | 2017-09-06 18:48 | Discharge Summary ---
Orders not resulted at time of discharge: Pending orders 09/05/17 05:55 Culture,Blood [BC] Stat 09/05/17 15:48 Respiratory Infection Panel [MOLMIC] Stat Date of Encounter: 09/06/17 Time of Encounter: 13:30 - Discharge Diagnosis (1) Atrial fibrillation Priority: Secondary Status: Chronic Qualifiers: Atrial fibrillation type: paroxysmal Qualified Code(s): I48.0 - Paroxysmal atrial fibrillation (2) Chest pain Priority: Primary Status: Acute Qualifiers: Chest pain type: chest pain on breathing Qualified Code(s): R07.1 - Chest pain on breathing; R07.81 - Pleurodynia (3) Pneumonia Priority: Secondary Status: Suspected Qualifiers: Pneumonia type: due to unspecified organism Laterality: left Lung location: lower lobe of lung Qualified Code(s): J18.1 - Lobar pneumonia, unspecified organism Hospital course: Ms. Mueller is a 67 year old female past medical history of atrial fibrillation coronary artery disease [place] recently underwent cardiac ablation at [facility] and suffered a perforation of her myocardium sustained a small pericardial effusion per verbal report patient. Patient presented to the emergency department after experiencing cough and shortness of breath which were new onset starting 2 days ago. She also is experiencing left arm pain She denies any fevers chills. EKG with atrial paced rhythm no ST-T wave abnormalities troponins were negative stat echo was obtained which did not reveal any pericardial effusion. Chest x-ray was negative suspicious for pneumonia blood cultures were obtained.. CT of chest revealed dependent airspace disease on the right. This is nonspecific and may represent a small's segment of pneumonia. patient is allergic to penicillin has anaphylactic reaction she is unable to take Levaquin due to QT prolongation secondary to sotalol use. Hospitalist discussed options with pharmacy opted for doxycycline for now. Hospitalist did discuss possible transfer since patient's cardiology is at another facility patient did not want to be transfered at that time prefer to stay here however if any interventions were needed preferred to be transferred to [facility]. Patient does see cardiology and electrophysiology in [place]. She underwent a recent ablation about month ago and sustained a small pericardial effusion. She recently had her sotalol increased and has pending rescheduling of her ablation in the next few weeks. Patient was admitted during admission patient experienced an episode of coughing she began to experience A. fib with RVR. Rates 170. She was initiated on a Cardizem drip which did bring down her rate. Cardiology was consulted advised to continue Cardizem drip make patient nothing by mouth after midnight for possible cardioversion in the a.m. Did discuss plan with the patient who agreed to Cardizem drip however she wanted to think about doing the cardioversion. Cardiology did speak with patient she declined cardioversion at this time. Patient adamant about going home. cardiology recommended to place patient on oral Cardizem hold her metoprolol and to send her home on sotalol and Cardizem. Patient did agree to this treatment plan. Soon after oral Cardizem was given patient requesting to leave AMA. I did speak with the patient I did review today risk of leaving AGAINST MEDICAL ADVICE including the possibility of dying. Patient verbalized understanding. I did inform cardiology the patient leaving AGAINST MEDICAL ADVICE cardiology advised to give patient prescription of Cardizem CD 120 mg daily and to stop metoprolol. I did give patient a prescription of doxycycline as well as Cardizem and advised her to hold metoprolol if she chooses to continue Cardizem. Patient states she will take the prescription however she will call her own advisory services associate before filling the prescription. Patient signed out AGAINST MEDICAL ADVICE - Time Spent with Patient Total time spent providing and/or coordinating discharge services: - Discharge Medications Prescriptions: Diltiazem CD (24hr) [Cardizem CD] 120 mg PO DAILY #30 cap.er.24h Doxycycline 100 mg PO BID 5 Days #10 capsule Home Medications: Aspirin 81 mg PO DAILY #30 tab.chew 03/28/16 [Rx] Metoprolol XL (24 HR) Succ [Toprol Xl] 50 mg PO DAILY 04/12/16 [History] Apixaban [Eliquis] 5 mg PO BID 09/05/17 [History] Atorvastatin [Lipitor] 40 mg PO HS 09/05/17 [History] Loratadine [Allergy Relief] 10 mg PO DAILY 09/05/17 [History] Multivitamin [One Daily Multivitamin] 1 tab PO DAILY 09/05/17 [History] Sotalol [Betapace] 160 mg PO Q12H 09/05/17 [History] Diltiazem CD (24hr) [Cardizem CD] 120 mg PO DAILY #30 cap.er.24h 09/06/17 [Rx] Doxycycline 100 mg PO BID 5 Days #10 capsule 09/06/17 [Rx] Allergies/Adverse Reactions: 3 Allergy/AdvReac Type Severity Reaction Status Date / Time Penicillins Allergy Swelling Verified 09/05/17 09:13 of Lip/Tongue/Throat Date of admission: 09/05/17 02:47 Primary care physician: Tarik Daily MD Consults: 09/06/17 00:22 Consult to Cardiology [CONS] Routine Comment: Consulting Provider: [facility] [place] Reason for Consult: Patient has history of atrial fibrillation. Sotalol increased 260 mg twice a day approximately one month ago. Continue with Eliquis. Earlier today patient had episode of coughing and a low-grade temperature she went into A. fib RVR. Initiated on Cardizem gtt at 5 mg hour. Call Completed: Yes Discharging clinician: Shira Mejias Anticipated date of discharge: 09/06/17 - Constitutional Vitals: Temp Pulse Resp BP Pulse Ox 98.2 F 98 15 102/63 111 09/06/17 10:00 09/06/17 06:34 09/06/17 10:00 09/06/17 10:00 09/06/17 10:00 General appearance: Present: cooperative, mild distress, A&O X 3, pleasant, answers questions appropriately - Head Head exam: Present: atraumatic, normocephalic - Eye Eye exam: Present: PERRL, conjuntiva pink, sclera anicteric Pupils: Present: PERRL - Neck Neck exam general surgery: Present: supple, trachea midline. Absent: lymphadenopathy - Respiratory Respiratory exam: Present: CTAB. Absent: accessory muscle use, rales, rhonchi, wheezes - Cardiovascular Cardiovascular exam: Present: irregular rhythm, +S1, +S2. Absent: diastolic murmur, gallop, rubs, systolic murmur - GI/Abdominal GI/Abdominal exam: Present: normal bowel sounds, soft, no peritoneal signs. Absent: distended, tenderness - Extremities Exam Extremities exam: Present: warm, radial pulses palpable and symmetrical. Absent : calf tenderness, cyanotic, pedal edema - Neurological Exam Neurological exam: Present: CN II-XII intact, oriented X3, no focal deficits. Absent: pronater drift, facial droop, speech deficit - Skin Skin exam: Present: dry, intact - Patient Status Disposition: Left Against Medical Advice Condition: Good - Discharge Instructions Follow Up With: Tarik Daily MD [Primary Care Provider] - Forms: Inpatient Work/School Release - VTE Reasons for not Prescribing Prophylaxis: Not indicated-Anticoagulated or INR therapeutic
[2017-09-07] MEDS ORDERED: Diltiazem CD (24hr) 120 MG CAPSULE PO SCH (09:00)
== END 2017-09-06 13:49 | disposition left against medical advice (07) ==
LOC: 3BNU 22:28 → EMEROO 22:28 → 3BNU 09-05 03:05
PROVIDERS: ADMIT Pediatrics; ATTEND Registered Nurse

== ENCOUNTER 2021-01-28 15:43 | Observation (INO) ==
[2021-01-28 16:32] LABS: Basophils # 0.1 K/mcL (0.0-0.2); Basophils % 0.9 %; Eosinophils # 0.4 K/mcL (0.0-0.6); Eosinophils % 4.2 %; Hemoglobin 13.8 g/dL (11.5-15.4); Immature Granulocytes % 0.3 % (0-4); Lymphocytes # 1.5 K/mcL (0.6-4.6); Lymphocytes % 16.5 %; Mean Corpuscular HGB Conc 32.1 g/dL (31.6-35.5); Mean Corpuscular Hemoglobin 28.4 pg (28.0-33.3); Mean Corpuscular Volume 88.5 fL (83.0-100.0); Mean Platelet Volume 11.1 fL (9.4-12.4); Monocytes # 0.9 K/mcL (0.0-1.3); Monocytes % 9.3 %; Neutrophils # 6.4 K/mcL (1.6-8.9); Platelet Count 257 K/mcL (140-400); Red Blood Count 4.86 M/mcL (3.82-4.97); Red Cell Distribution Width 13.2 % (11.5-14.5); Segmented Neutrophils % 68.8 %; White Blood Count 9.3 K/mcL (4.3-11.1)
[2021-01-28 16:40] LABS: INR 1.1
[2021-01-28 16:42] LABS: Activated Partial Thrombo Time 36.5 Seconds (26.0-36.0)
[2021-01-28 18:09] LABS: BUN/Creatinine Ratio 14 (6-26); Blood Urea Nitrogen 8 mg/dL (8-23); Calcium 9.2 mg/dL (8.6-10.3); Carbon Dioxide 24 mEq/L (23-29); Chloride 103 mEq/L (98-107); Glucose 126 mg/dL (70-105); Magnesium 1.9 mg/dL (1.6-2.6); Osmolality,Calculated 286 (280-300); Potassium 3.9 mEq/L (3.5-5.1); Sodium 138 mEq/L (136-145); Troponin I < 0.03 ng/mL (< 0.04); eGFR For African Americans > 60 (> 60); eGFR For Non-African Americans > 60 (> 60)
[2021-01-28] MEDS ORDERED: 0.9 % Sodium Chloride 500 ML IVC ONE (18:24)
[2021-01-28 18:58] LABS: Thyroid Stimulating Hormone 1.816 mcIU/mL (0.340-5.600)
[2021-01-28] MEDS: DilTIAZem 50 MG/50 ML IV.SOLN IVC SCH ×2 (19:22→23:41)
[2021-01-28] MEDS ORDERED: Naloxone 0.4 MG/ML INJ IVP PRN (20:00)
[2021-01-28] MEDS ORDERED: Ondansetron 4 MG/2 ML VIAL IVP PRN (20:16)
[2021-01-28] MEDS ORDERED: Melatonin 3 MG TABLET PO PRN (20:16)
[2021-01-28] MEDS ORDERED: Acetaminophen 325 MG TABLET PO PRN (20:16)
[2021-01-28] MEDS ORDERED: Apixaban 5 MG TABLET PO SCH (21:00)
[2021-01-29 03:06] LABS: Basophils # 0.1 K/mcL (0.0-0.2); Basophils % 0.9 %; Eosinophils # 0.3 K/mcL (0.0-0.6); Eosinophils % 3.9 %; Hematocrit 40.6 % (35.3-44.9); Hemoglobin 12.8 g/dL (11.5-15.4); Immature Granulocytes % 0.4 % (0-4); Lymphocytes # 1.9 K/mcL (0.6-4.6); Lymphocytes % 22.2 %; Mean Corpuscular HGB Conc 31.5 g/dL (31.6-35.5); Mean Corpuscular Hemoglobin 28.3 pg (28.0-33.3); Mean Corpuscular Volume 89.6 fL (83.0-100.0); Mean Platelet Volume 11.2 fL (9.4-12.4); Monocytes # 0.8 K/mcL (0.0-1.3); Monocytes % 8.9 %; Neutrophils # 5.4 K/mcL (1.6-8.9); Platelet Count 212 K/mcL (140-400); Red Blood Count 4.53 M/mcL (3.82-4.97); Red Cell Distribution Width 13.2 % (11.5-14.5); Segmented Neutrophils % 63.7 %; White Blood Count 8.5 K/mcL (4.3-11.1)
[2021-01-29 03:26] LABS: BUN/Creatinine Ratio 11 (6-26); Blood Urea Nitrogen 6 mg/dL (8-23); Carbon Dioxide 29 mEq/L (23-29); Chloride 107 mEq/L (98-107); Glucose 119 mg/dL (70-105); Magnesium 2.1 mg/dL (1.6-2.6); Osmolality,Calculated 291 (280-300); Potassium 3.6 mEq/L (3.5-5.1); Sodium 141 mEq/L (136-145); eGFR For African Americans > 60 (> 60); eGFR For Non-African Americans > 60 (> 60)
[2021-01-29 03:28] VITALS: PULSE 60
[2021-01-29 06:29] VITALS: BP 130/63; TEMP 97.8; O2SAT 91
[2021-01-29] MEDS ORDERED: Metoprolol XL (24 HR) Succ 50 MG TAB.ER.24H PO SCH (09:00)
[2021-01-29] MEDS ORDERED: Aspirin 81 MG TAB.CHEW PO SCH (09:00)
[2021-01-29] MEDS ORDERED: Loratadine 10 MG TABLET PO SCH (09:00)
[2021-01-29] MEDS ORDERED: DilTIAZem CD (24hr) 180 MG CAP.ER.24H PO SCH (09:00)
== END 2021-01-29 12:13 | disposition home or self-care (01) ==
LOC: EMEROOARM 15:43 → 3ANU 15:43 → SUATTDRO 21:30 → 3ANU 21:36
PROVIDERS: ADMIT Internal Medicine; ATTEND Internal Medicine